=== PATIENT | male | born 1995 | race African-American/Black ===

== ENCOUNTER 2018-07-08 14:01 | Emergency (ER) | payer MEDICAID, SELFPAY ==
[2018-07-08 14:02] VITALS: BP 126/70; PULSE 108; PULSE 112; RESP 18; TEMP 38.6; O2SAT 97; BMI 24.7
[2018-07-08] MEDS: Ibuprofen 400 MG Tablet PO (14:20)
--- NOTE | 2018-07-08 14:56 | ED.VISSUMM ---
- ER Visit Summary Date of Service: 07/08/18 Chief Complaint: Cough, fever History of Present Illness: The patient is a 22 M presents the emergency department cough, fever, chills, myalgias. Patient symptoms began within the past 36 hours. He states that his girlfriend was sick with similar symptoms. He developed a tickle in his throat. Since then, he had cough and generalized malaise. He had 2 episodes of loose watery diarrhea. He is also had fever and chills. He is on no daily medications. He has no history of immunosuppression. He did not get a flu shot this year. Physical Examination: Vital signs reviewed General: Well-nourished, well-developed Head: Normocephalic, atraumatic Eyes: Pupils equal and reactive, extraocular muscles intact Neck, supple, no lymphadenopathy Heart: Regular rate and rhythm Respiratory: No distress, clear bilaterally Abdomen: Soft, nontender, nondistended, no peritoneal signs Back: Nontender Extremities: Nontender, no edema, no cords Skin: Normal color no rash Neuro: Alert and oriented, no focal or lateralizing deficits Test Results: [] Emergency Department Course and Treatment: She presents with cough and fever. Rapid flu was obtained in triage. He is positive for influenza A. Is within the window for treatment with Tamiflu which he wants to do. I feel this is reasonable. He is given the first dose here. He will be continued on this as an outpatient. Chest x-ray shows no focal infiltrative process. Is not hypoxic. Is not tachypneic. I do feel he is safe for outpatient therapy. Treatment Plan: [] Disposition: Discharge Impression: 1. Influenza This note was generated with [employer] dictation software. It may contain incorrect words, spelling, and punctuation that were not noted in review of the chart prior to signing ED Disposition - Plan for ED Patient: Instructions: ED Flu Prescriptions: Oseltamivir Phosphate [Tamiflu] 75 mg PO BID #10 cap Referrals: Care Physician,No Primary [Primary Care Provider] -
[2018-07-08] MEDS: Ondansetron ODT 4 MG Tablet PO (15:08)
[2018-07-08 15:11] VITALS: O2SAT 96
--- NOTE | 2018-07-08 15:13 | RAD_ITS ---
STUDY: X-RAY CHEST REASON FOR EXAM: Male, 22 years old. Cough fever. Shortness of breath and weakness. TECHNIQUE: PA and lateral views of the chest. COMPARISON: None. FINDINGS: The lungs are clear and expanded. Scattered calcified granulomas. There is no demonstrated pleural abnormality. Normal size heart. Normal mediastinum and lizbeth. Normal visualized pulmonary arteries. Normal visualized aortic arch and descending thoracic aorta. Normal visualized thoracic spine. Normal visualized ribs, clavicles, and shoulders. There is no demonstrated abnormality of the visualized soft tissue structures of the upper abdomen. RAD/Chest PA and Lateral IMPRESSION: Normal x-ray examination of the chest. Electronically Signed: Papito Lynn, at 15:36 EST , Service support ,
[2018-07-08 15:47] VITALS: PULSE 96; RESP 14; O2SAT 97
[2018-07-08] MEDS: Oseltamivir Phosphate 75 MG Capsule PO (15:51)
== END 2018-07-08 15:51 | disposition home or self-care (01) ==
LOC: ED 15:00
PROVIDERS: Emergency Provider Emergency Medicine
DX: J09.X2 Influenza due to identified novel influenza A virus with other respiratory manifestations (principal); Z72.0 Tobacco use
CPT/HCPCS: 71046; 87804; 99282